=== PATIENT | female | born 1995 | race American Indian/Alaskan Native ===

== ENCOUNTER 2019-12-01 13:24 | Emergency (ER) | payer SELFPAY ==
[2019-12-01 13:30] VITALS: BP 131/95
--- NOTE | 2019-12-01 14:11 | Emergency Department Report ---
ED Female HPI - General Chief complaint: Urogenital-Female Stated complaint: UTI Time Seen by Provider: 12/01/19 14:11 Source: patient Mode of arrival: Ambulatory Limitations: No Limitations - History of Present Illness Initial comments: 24-year-old -[place] female presents to the emergency room for 1 day history of quotations I think to have a urinary tract infection"'s. Patient states she is having urinary frequency urinary urgency and some spotting. Patient reports her last menstrual period was 11/23/2019. Patient denies any pelvic pain no vaginal discharge. Patient denies any fever chills no nausea no vomiting. No known drug allergies currently takes no medications on a daily basis. MD Complaint: dysuria Onset/Timin -: days(s) Quality: burning Improves with: none Worsens with: intercourse Are you Now?: No Associated Symptoms: dysuria, hematuria. denies: fever/chills - Related Data Previous Rx's Medication Instructions Recorded Last Taken Type Nitrofurantoin Sunflower/M-Cryst 100 mg PO Q12HR 10 Days #20 capsule 12/01/19 Unknown Rx [Macrobid CAP] Allergies Allergy/AdvReac Type Severity Reaction Status Date / Time No Known Allergies Allergy Unverified 12/01/19 13:29 ED Review of Systems ROS: Stated complaint: UTI Other details as noted in HPI ED Past Medical Hx - Past Medical History Previous Medical History?: No - Surgical History Past Surgical History?: No - Medications Home Medications: Home Medications Medication Instructions Recorded Confirmed Last Taken Type Nitrofurantoin Sunflower/M-Cryst 100 mg PO Q12HR 10 Days #20 capsule 12/01/19 Unknown Rx [Macrobid CAP] ED Physical Exam - General Limitations: No Limitations General appearance: alert - Head Head exam: Present: atraumatic - Eye Eye exam: Present: normal appearance - ENT ENT exam: Present: mucous membranes moist - Neck Neck exam: Present: normal inspection - GI/Abdominal GI/Abdominal exam: Present: soft. Absent: distended, tenderness - Back Exam Back exam: Present: normal inspection - Neurological Exam Neurological exam: Present: alert, oriented X3 - Psychiatric Psychiatric exam: Present: normal affect, normal mood - Skin Skin exam: Present: warm, dry, intact, normal color. Absent: rash ED Course Vital Signs 12/01/19 13:27 Temperature 98.4 F Pulse Rate 81 Respiratory 14 Rate Blood Pressure 131/95 O2 Sat by Pulse 100 Oximetry ED Medical Decision Making - Medical Decision Making 24-year-old -[place] female presents to the emergency room for 1 day h istory of quotations I think to have a urinary tract infection"'s. Patient states she is having urinary frequency urinary urgency and some spotting. Patient reports her last menstrual period was 11/23/2019. Patient denies any pelvic pain no vaginal discharge. Patient denies any fever chills no nausea no vomiting. No known drug allergies currently takes no medications on a daily basis. Patient's urine shows that she has greater than 182 WBCs. Will treat patient for urinary tract infection with Macrobid increase her fluid intake. Urinary culture will be sent out. Critical care attestation.: If time is entered above; I have spent that time in minutes in the direct care of this critically ill patient, excluding procedure time. ED Disposition Clinical Impression: UTI (urinary tract infection) Disposition: DC- TO HOME OR SELFCARE Is pt being admited?: No Does the pt Need Aspirin: No Condition: Stable Instructions: Urinary Tract Infection in Women (ED) Additional Instructions: Complete antibiotics as prescribed. Pain medication as needed increase your water intake. Prescriptions: Nitrofurantoin Sunflower/M-Cryst [Macrobid CAP] 100 mg PO Q12HR 10 Days #20 capsule Referrals: DAREK MONTAÑO MD [Staff Physician] - 3-5 Days Forms: Work/School Release Form(ED)
[2019-12-01 14:21] LABS: Bacteria,Urine 1+ /HPF (Negative); Bilirubin,Urine NEG (Negative); Blood,Urine LG (Negative); Color,Urine Yellow (Yellow)
[2019-12-01 14:22] LABS: HCG Qualitative,Urine Negative (Negative); RBC,Urine > 182.0 /HPF (0.0-6.0); WBC,Urine > 182.0 /HPF (0.0-6.0)
== END 2019-12-01 16:19 | disposition home or self-care (01) ==
LOC: ED 13:24
DX: N39.0 Urinary tract infection, site not specified (principal); Z79.899 Other long term (current) drug therapy
CPT/HCPCS: 81001; 81025; 87086